=== PATIENT | male | born 1975 | race Caucasian/White ===

== ENCOUNTER 2018-06-04 21:14 | Emergency (ER) | payer OTHER ==
[2018-06-04] MEDS ORDERED: Tetracaine 0.5% OPHTH SOLN/PF 4 ML BOT ONE (21:43)
[2018-06-04] MEDS ORDERED: Erythromycin Base 0.5% Ophth Oint 3.5 gm Tube ONE (22:30)
== END 2018-06-04 22:39 | disposition home or self-care (01) ==
LOC: MADERS 21:14
DX: S05.01XA Injury of conjunctiva and corneal abrasion without foreign body, right eye, initial encounter (principal); W22.8XXA Striking against or struck by other objects, initial encounter
CPT/HCPCS: 99282

== ENCOUNTER 2019-11-14 17:01 | Emergency (ER) | payer OTHER ==
[2019-11-14] MEDS ORDERED: Adacel (T-DAP) 0.5 ML SYRINGE ONE (17:36)
== END 2019-11-14 17:44 | disposition home or self-care (01) ==
LOC: MADERS 17:01
DX: S91.111A Laceration without foreign body of right great toe without damage to nail, initial encounter (principal); Z23 Encounter for immunization; W26.0XXA Contact with knife, initial encounter
CPT/HCPCS: 12001; 90471; 90715